=== PATIENT | male | born 1935 | race Caucasian/White ===

== ENCOUNTER 2017-04-11 00:24 | Emergency (ER) | payer OTHER, BC ==
--- NOTE | 2017-04-11 00:40 | PDOC ---
History of Present Illness - General History Source: Patient <Miguel Mendieta - Last Filed: 04/11/17 01:47> - General History Source: Patient, Spouse Exam Limitations: No Limitations - History of Present Illness Initial Comments: 04/11/17 01:16 The patient is a 82 year old male with significant past medical history of MVP and diverticulosis who presents to the ED BIBA from home for pain to the back of the head and back of the neck prior to arrival. Patient reports around yesterday evening he was having dinner and at that time he took all of his evening medications all at once. Subsequently, he began to choke. States some of the medications have dissolved and as a result coughed up some of the medications and noted some coming out from his nose. He now has complaints of pain to the back of the head and back of the neck. gave him some tylenol around 10pm last night with no relief. The patient denies fever, chills, cough, SOB, chest pain, and palpitations. The patient denies abdominal pain, nausea, vomiting, and diarrhea. Allergies: Tetanus Toxoid, Fluid Social History: No alcohol, tobacco, or drug use reported. Past Surgical History: angioplasty with stent placement, cervical fusion c3-c7, right rotator cuff repair, lumbar laminectomy PCP: Dr. Wilfredo Bell <Yu Cruz - Last Filed: 04/11/17 02:00> - General Chief Complaint: Pain, Acute Stated Complaint: HEAD PAIN Time Seen by Provider: 04/11/17 00:37 Past History - Past Medical History Anemia: No Asthma: No Cancer: No Cardiac Disorders: Yes (MITRAL VALVE PROLAPSE,LEFT CAROTID STENOSIS) CVA: No COPD: No CHF: No Dementia: No Diabetes: No GI Disorders: Yes (DIVERTICULOSIS,CONSTIPATION) Disorders: No HTN: No Hypercholesterolemia: No Liver Disease: No Seizures: No Thyroid Disease: No - Surgical History Abdominal Surgery: No Appendectomy: No Cardiac Surgery: Yes (ANGIOPLASTY WITH STENT PLACEMENT) Cholecystectomy: No Lung Surgery: No Neurologic Surgery: Yes (CERVICAL FUSION C3-C7) Orthopedic Surgery: Yes (RIGHT ROTATOR CUFF REPAIR,, LUMBAR LAMINECTOMY, LEFT PART) - Psycho/Social/Smoking Cessation Hx Smoking History: Former smoker If you are a former smoker, when did you quit?: 10 YRS AGO Hx Alcohol Use: No Drug/Substance Use Hx: No Substance Use Type: None Hx Substance Use Treatment: No <AnamClaudetteMiguel - Last Filed: 04/11/17 01:47> <Yu Cruz - Last Filed: 04/11/17 02:00> - Past Medical History Allergies/Adverse Reactions: Allergies Allergy/AdvReac Type Severity Reaction Status Date / Time Tetanus Toxoid,Fluid Allergy Severe Swelling Verified 04/11/17 00:30 [From Tetanus Toxoid Purogenated] Home Medications: Ambulatory Orders Aspirin 81 mg PO DAILY 12/10/11 Pitavastatin Calcium [Livalo] 20 mg PO DAILY 12/10/11 Vitamin D 1,000 iu PO DAILY 12/10/11 Cinnamon Bark [Cinnamon] 1,000 mg PO DAILY 04/11/17 Docusate Sodium [Stool Softener] 50 mg PO DAILY 04/11/17 Furosemide [Lasix] 20 mg PO PRN 04/11/17 Gabapentin 300 mg PO BID 04/11/17 Metoprolol Succinate [Toprol Xl -] 25 mg PO BID 04/11/17 Ranitidine HCl [Zantac] 150 mg PO DAILY 04/11/17 Warfarin Na [Coumadin] 2 mg PO DAILY 04/11/17 Review of Systems - Review of Systems Able to Perform ROS?: Yes Comments:: 04/11/17 01:17 CONSTITUTIONAL: Absent: fever, no chills, no fatigue EYES: Absent: visual changes ENT: Absent: ear pain, no sore throat CARDIOVASCULAR: Absent: chest pain, no palpitations RESPIRATORY: Absent: cough, no SOB GI: Absent: abdominal pain, no nausea, no vomiting, no constipation, no diarrhea GENITOURINARY: Absent: dysuria, no frequency, no hematuria MUSCULOSKELETAL: +pain to the back of the neck Absent: back pain SKIN: Absent: rash NEURO: +pain to the back of the head <Yu Cruz - Last Filed: 04/11/17 02:00> *Physical Exam - Vital Signs Last Vital Signs Temp Pulse Resp BP Pulse Ox 97.1 F L 108 H 20 151/96 98 04/11/17 00:32 04/11/17 00:32 04/11/17 00:32 04/11/17 00:32 04/11/17 00:32 - Physical Exam Comments: 04/11/17 01:17 GENERAL: Well-appearing, well-nourished. Mild distress. HEENT: Normocephalic, atraumatic. PERRL, EOM intact. CARDIOVASCULAR: Normal S1, S2. Regular rate and rhythm. PULMONARY: Clear to auscultation bilaterally. ABDOMEN: Soft, non-distended, non-tender. EXTREMITIES: Normal ROM in all four extremities. No gross deformities. SKIN: Warm, dry. No rash NEUROLOGICAL: No focal neurological deficits. <Yu Cruz - Last Filed: 04/11/17 02:00> Heart Score/ECG Review - ECG Impressions Comment:: 04/11/17 01:59 Atrial fibrillation @100bpm Inferior infarct, age undetermined Abnormal ECG <Yu Crzu - Last Filed: 04/11/17 02:00> ED Treatment Course - LABORATORY CBC & Chemistry Diagram: 04/11/17 01:36 04/11/17 01:36 - RADIOLOGY Radiograph Interpretation: 04/11/17 01:32 EXAM: HEAD CT WITHOUT CONTRAST Reviewed by Imaging push connector assembler: FINDINGS: No evidence of hemorrhage, acute territorial infarction, mass effect, midline shift, hydrocephalus, or extra- axial collections Age appropriate involutional changes Vascular calcifications of the carotid siphons and distal vertebral arteries Status post left mastoidectomy with opacification of the left middle ear cavity Mild bilateral maxillary sinus mucoperiosteal thickening The calvarium is unremarkable. IMPRESSION: 1. No acute intracranial process 04/11/17 01:35 EXAM: CERVICAL SPINE CT W/O CONTR Reviewed by Imaging push connector assembler: FINDINGS: Status post anterior fusion of C3-C7 Intramedullary cage device within C6 and C7 No fractures, subluxations, or jumped facets Normal prevertebral soft tissues Pertinent segmental findings: C2-C3: There is a disc bulge that produces mild narrowing of the central canal. Left uncovertebral hypertrophy that produces mild narrowing of the left neural foramen. The right neural foramen is patent C3-C4: Disc space narrowing. There is posterior bony ridging that produces mild narrowing of the central canal. There is bilateral uncovertebral joint hypertrophy with moderate narrowing of the right neural foramen and moderate to severe narrowing of the left neural foramen C4-C5: Disc space narrowing. There is posterior bony ridging that produces mild narrowing of the central canal. Left uncovertebral hypertrophywith moderate narrowing of the left neural foramen. The right neural foramen is patent C5-C6: Disc space narrowing. There is posterior bony ridging.. The central canal is patent. There is bilateral uncovertebral hypertrophy with moderate to severe narrowing of the left neural foramen and moderate narrowing of the right neural foramen There is facet arthrosis at all levels. Incidental note is made of aneurysmal dilatation of the ascending thoracic aorta with a measurement of 4.2 cm. IMPRESSION: 1. No acute cervical spine injury 2. Postoperative changes 3. Multilevel cervical spondylosis <Yu Cruz - Last Filed: 04/11/17 02:00> Medical Decision Making - Medical Decision Making 04/11/17 01:45 Dr. Mendieta: The scribe's documentation has been prepared under my direction and personally reviewed by me in its entirery. I confirm that the note above accurately reflects all work, treatment, procedures, and medical decision making performed by me. <Miguel Mendieta - Last Filed: 04/11/17 01:47> *DC/Admit/Observation/Transfer - Discharge Dispostion Admit: No <Miguel Mendieta - Last Filed: 04/11/17 01:47> - Attestations Scribe Attestion: 04/11/17 01:17 Documentation prepared by Yu Cruz, acting as medical accountant for Miguel Mendieta MD/DO. <Yu Cruz - Last Filed: 04/11/17 02:00> Diagnosis at time of Disposition: Headache Qualifiers: Headache type: unspecified Headache chronicity pattern: unspecified pattern Intractability: not intractable Qualified Code(s): R51 - Headache Sinusitis Qualifiers: Sinusitis location: maxillary Chronicity: subacute Qualified Code(s): J01.00 - Acute maxillary sinusitis, unspecified - Discharge Dispostion Disposition: HOME Condition at time of disposition: Stable - Referrals Referrals: Wilfredo Bell MD [Primary Care Provider] - - Patient Instructions Printed Discharge Instructions: DI for Headache, DI for Sinusitis Additional Instructions: Please continue the Bactrim DS that you have started for the wound infection. Follow up with your primary care doctor in the next day or two.
[2017-04-11 00:46] VITALS: BP 151/96; TEMP 97.1; BMI 31.8
[2017-04-11 01:49] LABS: BASOPHIL 0.9 % (0-2.0); EOSINOPHIL 1.7 % (0-4.5); MCH 29.6 pg (25.7-33.7); MCHC 32.2 g/dl (32.0-35.9); MEAN CELL VOLUME 91.8 fl (80-96); MEAN PLT VOLUME 7.8 fl (7.5-11.1); NEUTROPHILS 67.5 % (42.8-82.8); PLATELET COUNT 234 K/MM3 (134-434); RDW 16.4 % (11.9-15.9); WHITE BLOOD COUNT 7.9 K/mm3 (4.0-10.0)
[2017-04-11 02:00] VITALS: PULSE 102
[2017-04-11 04:19] LABS: INR 2.34 (0.82-1.09); PROTHROMBIN TIME (PATIENT) 26.2 SEC (9.98-11.88)
[2017-04-11 04:36] LABS: ALBUMIN 3.3 g/dl (3.4-5.0); ALK PHOS 119 U/L (45-117); ANION GAP 11 (8-16); BILIRUBIN,TOTAL 0.6 mg/dL (0.2-1.0); CALCIUM 8.4 mg/dL (8.5-10.1); CO2 26 mmol/L (21-32); COCKROFT - GAULT 109.18; CREATININE 0.8 mg/dL (0.7-1.3); MAGNESIUM 1.8 mg/dL (1.8-2.4); SGOT/AST 22 U/L (15-37); SGPT/ALT 23 U/L (12-78); TOT PROT 6.8 g/dl (6.4-8.2); TROPONIN I < 0.02 ng/ml (0.00-0.05)
[2017-04-11 04:41] LABS: GLUCOSE,RANDOM 137 mg/dL (74-106)
--- NOTE | 2017-04-12 15:38 | EKG ---
Test Reason : Blood Pressure : / mmHG Vent. Rate : 100 BPM Atrial Rate : 375 BPM P-R Int : 000 ms QRS Dur : 090 ms QT Int : 372 ms P-R-T Axes : 000 -23 064 degrees QTc Int : 479 ms ATRIAL FLUTTER INFERIOR INFARCT (CITED ON OR BEFORE 06-JUN-2006) ABNORMAL ECG WHEN COMPARED WITH ECG OF 06-JUN-2006 08:42, ATRIAL FIBRILLATION HAS REPLACED SINUS RHYTHM CLINICAL CORRELATION IS RECOMMENDED Confirmed by SHEKHAR BECKFORD MD ([id number]) on 04/12/2017 3:38:29 PM Referred By: Confirmed By:SHEKHAR BECKFORD MD
== END 2017-04-11 03:06 | disposition home or self-care (01) ==
LOC: JER 00:24
DX: J01.00 Acute maxillary sinusitis, unspecified (principal); R51 Headache; I34.1 Nonrheumatic mitral (valve) prolapse; Z88.8 Allergy status to other drugs, medicaments and biological substances; I65.22 Occlusion and stenosis of left carotid artery; Z95.5 Presence of coronary angioplasty implant and graft; Z79.82 Long term (current) use of aspirin; Z87.891 Personal history of nicotine dependence
CPT/HCPCS: 36415; 70450-TC; 72125-TC; 80053; 82550; 83735; 83880; 84484; 85025; 85610; 93005; 93010; 99283-25

== ENCOUNTER 2018-12-26 01:09 | Inpatient (IN) | payer OTHER ==
[2018-12-26 01:13] VITALS: BMI 32.5
--- NOTE | 2018-12-26 01:28 | PDOC ---
History of Present Illness - History of Present Illness Initial Comments: 83 year old male with PMH of HTN, HLD, and CAD (stent placement on warfarin) presenting with fevers, chills, and left leg pain for the past few hours. States that he had some small red spots on the left lateral aspect of his left ankle which became warm and he then noticed on the medial aspect as well. He began to feel feverish as well and the rash became even more painful and itchy. He does have a chronic wound on his right lower leg that is healing well and is being managed by Dr. Brooks. Denies nausea, vomiting, diarrhea, chest pain, fevers, chills, or other symptoms. 12/26/18 01:36 <Patt Lockwood - Last Filed: 12/26/18 06:11> <Carolin Samuel - Last Filed: 12/26/18 06:51> - General Chief Complaint: SIRS, Suspected/Possible Stated Complaint: FEVER,RASH Time Seen by Provider: 12/26/18 01:28 Past History - Past Medical History Anemia: No Asthma: No Cancer: No Cardiac Disorders: Yes (MITRAL VALVE PROLAPSE,LEFT CAROTID STENOSIS) CVA: No COPD: No CHF: No Dementia: No Diabetes: No GI Disorders: Yes (DIVERTICULOSIS,CONSTIPATION) Disorders: No HTN: No Hypercholesterolemia: No Liver Disease: No Seizures: No Thyroid Disease: No - Surgical History Abdominal Surgery: No Appendectomy: No Cardiac Surgery: Yes (ANGIOPLASTY WITH STENT PLACEMENT) Cholecystectomy: No Lung Surgery: No Neurologic Surgery: Yes (CERVICAL FUSION C3-C7) Orthopedic Surgery: Yes (RIGHT ROTATOR CUFF REPAIR,, LUMBAR LAMINECTOMY, LEFT PART) - Suicide/Smoking/Psychosocial Hx Smoking History: Never smoked Have you smoked in the past 12 months: No If you are a former smoker, when did you quit?: 10 YRS AGO Hx Alcohol Use: No Drug/Substance Use Hx: No Substance Use Type: None Hx Substance Use Treatment: No <Patt Lockwood - Last Filed: 12/26/18 06:11> <Carolin Samuel - Last Filed: 12/26/18 06:51> - Past Medical History Allergies/Adverse Reactions: Allergies Allergy/AdvReac Type Severity Reaction Status Date / Time Tetanus Toxoid,Fluid Allergy Severe Swelling Verified 12/26/18 01:12 [From Tetanus Toxoid Purogenated] Home Medications: Ambulatory Orders Pitavastatin Calcium [Livalo] 20 mg PO DAILY 12/10/11 Vitamin D 1,000 iu PO DAILY 12/10/11 Docusate Sodium [Stool Softener] 50 mg PO DAILY 04/11/17 Furosemide [Lasix] 20 mg PO PRN 04/11/17 Gabapentin 300 mg PO BID 04/11/17 Metoprolol Succinate [Toprol Xl -] 25 mg PO BID 04/11/17 Ranitidine HCl [Zantac] 150 mg PO DAILY 04/11/17 Warfarin Na [Coumadin] 2 mg PO DAILY 04/11/17 Review of Systems - Review of Systems Constitutional: Yes: Fever. No: Chills, Diaphoresis HEENTM: No: Eye Pain, Blurred Vision, Tearing Respiratory: No: Cough, Orthopnea, Shortness of Breath Cardiac (ROS): No: Chest Pain, Edema, Irregular Heart Rate ABD/GI: No: Diarrhea, Nausea, Vomiting : No: Dysuria, Discharge, Hematuria Musculoskeletal: Yes: Joint Pain, Muscle Pain Integumentary: Yes: Erythema, Lesions, Rash. No: Bruising, Flushing Neurological: No: Headache, Numbness, Paresthesia Psychiatric: No: Anxiety, Depression Hematologic/Lymphatic: Yes: Blood Clots, Easy Bleeding. No: Anemia <Patt Lockwood - Last Filed: 12/26/18 06:11> *Physical Exam - Vital Signs Last Vital Signs Temp Pulse Resp BP Pulse Ox 100.0 F H 105 H 18 141/52 L 95 12/26/18 01:12 12/26/18 01:12 12/26/18 01:12 12/26/18 01:12 12/26/18 01:12 - Physical Exam General Appearance: Yes: Nourished, Appropriately Dressed HEENT: positive: EOMI, MILIND, Normal ENT Inspection, Normal Voice Neck: positive: Trachea midline, Normal Thyroid, Supple. negative: Tender, Rigid Respiratory/Chest: positive: Lungs Clear, Normal Breath Sounds. negative: Chest Tender, Respiratory Distress Cardiovascular: positive: Irregularly Irregular. negative: Regular Rhythm, Regular Rate Gastrointestinal/Abdominal: positive: Flat, Soft. negative: Tender Lymphatic: negative: Adenopathy, Tenderness Musculoskeletal: positive: Normal Inspection Extremity: positive: Normal Capillary Refill, Normal Range of Motion, Tender. negative: Normal Inspection (tender left lower leg with erythema over the medial malleolus and lateral malleolus) Integumentary: positive: Warm, Rash. negative: Normal Color (erythema as above without crepitus or sloughing skin on the left leg. Stable right leg circular wound under a clean dry bandage.) Neurologic: positive: Fully Oriented, Alert, Normal Mood/Affect, Normal Response , Motor Strength 5/5 <Patt Lockwood - Last Filed: 12/26/18 06:11> - Vital Signs Last Vital Signs Temp Pulse Resp BP Pulse Ox 97.5 F L 86 20 124/63 95 12/26/18 05:28 12/26/18 05:28 12/26/18 05:28 12/26/18 05:28 12/26/18 05:28 <Carolin Samuel - Last Filed: 12/26/18 06:51> Moderate Sedation - Procedure Monitoring Vital Signs: Procedure Monitoring Vital Signs Temperature 100.0 F H 12/26/18 01:12 Pulse Rate 105 H 12/26/18 01:12 Respiratory Rate 18 12/26/18 01:12 Blood Pressure 141/52 L 12/26/18 01:12 O2 Sat by Pulse Oximetry (%) 95 12/26/18 01:12 <Patt Lockwood - Last Filed: 12/26/18 06:11> - Procedure Monitoring Vital Signs: Procedure Monitoring Vital Signs Temperature 97.5 F L 12/26/18 05:28 Pulse Rate 86 12/26/18 05:28 Respiratory Rate 20 12/26/18 05:28 Blood Pressure 124/63 12/26/18 05:28 O2 Sat by Pulse Oximetry (%) 95 12/26/18 05:28 <Carolin Samuel - Last Filed: 12/26/18 06:51> ED Treatment Course - LABORATORY CBC & Chemistry Diagram: 12/26/18 03:00 12/26/18 03:31 <Patt Lockwood - Last Filed: 12/26/18 06:11> - LABORATORY CBC & Chemistry Diagram: 12/26/18 03:00 12/26/18 03:31 - ADDITIONAL ORDERS Additional order review: Laboratory Results 12/26/18 12/26/18 12/26/18 03:31 03:31 03:00 PT with INR INR PTT (Actin FS) VBG pH POC VBG pCO2 POC VBG pO2 Mixed VBG HCO3 Sodium 136 Potassium 4.4 Chloride 101 Carbon Dioxide 27 Anion Gap 8 BUN 16 Creatinine 0.9 Creat Clearance w eGFR > 60 Random Glucose 157 H Lactic Acid 1.8 1.8 Calcium 8.4 L Total Bilirubin 0.9 AST 28 ALT 19 Alkaline Phosphatase 103 Troponin I Total Protein 6.6 Albumin 3.3 L 12/26/18 12/26/18 12/26/18 03:00 03:00 03:00 PT with INR INR PTT (Actin FS) VBG pH 7.38 POC VBG pCO2 51.6 POC VBG pO2 34.5 Mixed VBG HCO3 30.2 H Sodium Cancelled Potassium Cancelled Chloride Cancelled Carbon Dioxide Cancelled Anion Gap Cancelled BUN Cancelled Creatinine Cancelled Creat Clearance w eGFR Cancelled Random Glucose Cancelled Lactic Acid Calcium Cancelled Total Bilirubin Cancelled AST Cancelled ALT Cancelled Alkaline Phosphatase Cancelled Troponin I < 0.02 Total Protein Cancelled Albumin Cancelled 12/26/18 03:00 PT with INR 32.10 H INR 2.69 H PTT (Actin FS) 39.7 H VBG pH POC VBG pCO2 POC VBG pO2 Mixed VBG HCO3 Sodium Potassium Chloride Carbon Dioxide Anion Gap BUN Creatinine Creat Clearance w eGFR Random Glucose Lactic Acid Calcium Total Bilirubin AST ALT Alkaline Phosphatase Troponin I Total Protein Albumin 12/26/18 03:00 RBC 4.58 MCV 95.0 MCHC 34.8 RDW 14.1 D MPV 8.2 Neutrophils % 81.4 D Lymphocytes % 9.2 D Monocytes % 8.0 Eosinophils % 0.9 Basophils % 0.5 - Medications Given in the ED: ED Medications Discontinued Medications Generic Name Dose Route Start Last Admin Trade Name Freq PRN Reason Stop Dose Admin Piperacillin Sod/Tazobactam 100 mls @ 200 mls/hr 12/26/18 03:12 12/26/18 03: 47 Sod 4.5 gm/ Dextrose IVPB 12/26/18 03:41 200 mls/hr ONCE ONE Administration Protocol Sodium Chloride 1,000 ml 12/26/18 04:33 12/26/18 04:40 Normal Saline - IV 12/26/18 04:34 1,000 ml ONCE ONE Administration <Carolin Samuel - Last Filed: 12/26/18 06:51> Medical Decision Making - Medical Decision Making 83 year old male with fever, slight tachycardia, and left lower extremity skin changes + pain concerning for cellulites. Originally the left foot was noted to be slightly cool to the touch compared the right foot so there was some concern for an arterial thrombus given his history of PAD and afib. This was ruled out with the arterial Doppler. Patient originally presented for concern of sepsis but never had a measured fever here and VS cleared with 1 L NS. Given cardiac history, IV fluids were given cautiously. Patient was never toxic appearing. Labs roughly within normal limits (mild leukocytosis, WNL lactate, normal VBG) but patient admitted for broad spectrum IV antibiosis and further evaluation. 12/26/18 04:55 <Patt Lockwood - Last Filed: 12/26/18 06:11> *DC/Admit/Observation/Transfer - Discharge Dispostion Decision to Admit order: Yes <Patt Lockwood - Last Filed: 12/26/18 06:11> <Carolin Samuel - Last Filed: 12/26/18 06:51> Diagnosis at time of Disposition: Cellulitis Qualifiers: Site of cellulitis: extremity Site of cellulitis of extremity: lower extremity Laterality: left Qualified Code(s): L03.116 - Cellulitis of left lower limb - Discharge Dispostion Condition at time of disposition: Stable
--- NOTE | 2018-12-26 03:08 | PDOC ---
Attending Attestation - Resident Resident Name: Patt Lockwood - ED Attending Attestation I have performed the following: I have examined & evaluated the patient, The case was reviewed & discussed with the resident, I agree w/resident's findings & plan - HPI HPI: 12/26/18 06:50 83 year old male with PMH of HTN, HLD, and CAD (stent placement on warfarin) presenting with fevers, chills, and left leg pain for the past few hours. States that he had some small red spots on the left lateral aspect of his left ankle which became warm and he then noticed on the medial aspect as well. It is cellulitis. - Physicial Exam PE: 12/26/18 06:51 Agree with resident's note - Medical Decision Making 12/26/18 03:07 Patient Name: SHERRY VILLAFUERTE THIS IS A PRELIMINARY REPORT FROM [facility] DATE OF SERVICE: 2018-12-26 02:04:48 IMAGES: 22 EXAM: DUPLEX ART. LEGS- LIMITED US HISTORY: Leg pain COMPARISON: None. FINDINGS: Arterial duplex sonography of the left lower extremity was performed from the common femoral through the posterior tibial arteries. There is no elevation of the velocity. Triphasic waveforms are seen in the superficial femoral and popliteal arteries. Biphasic waveform is seen in the common femoral artery. No significant arterial velocity elevation is seen. The velocity in the common femoral artery 79 cm/s and the posterior tibial arteries 22 cm/s. Mild plaquing is noted. IMPRESSION: Mild plaquing is noted in the left lower extremity arterial tree but no significant stenoses are identified at this time. THIS DOCUMENT HAS BEEN ELECTRONICALLY SIGNED 12/26/18 03:18 Patient Name: SHERRY VILLAFUERTE THIS IS A PRELIMINARY REPORT FROM [facility] DATE OF SERVICE: 2018-12-26 01:57:57 IMAGES: 22 EXAM: Ultrasound venous duplex bilateral lower extremity HISTORY: Right leg pain COMPARISON: None. FINDINGS: Left lower extremity venous ultrasound shows intact common femoral, superficial femoral and popliteal veins. Normal augmentation and compression is evident in these venous segments. No intraluminal thrombus seen. IMPRESSION: NO EVIDENCE FOR DVT. 12/26/18 06:52 Pt will be treated with abx and he will be admitted for further workup.
[2018-12-26] MEDS ORDERED: PIPERACILLIN/TAZOB 4.5 GM 4.5 GM in DEXTROSE 5%-WATER 100 ML IVPB ONE (03:12)
[2018-12-26 03:14] LABS: BASO % 0.5 % (0-2.0); EOS % 0.9 % (0-4.5); HEMATOCRIT 43.5 % (35.4-49); HEMOGLOBIN 15.2 GM/dL (11.7-16.9); LYMPH % 9.2 % (8-40); MCH 33.1 pg (25.7-33.7); MCHC 34.8 g/dl (32.0-35.9); MEAN PLT VOLUME 8.2 fl (7.5-11.1); NEUT % 81.4 % (42.8-82.8); PLATELET COUNT 217 K/MM3 (134-434); RBC 4.58 M/mm3 (4.00-5.60); RDW 14.1 % (11.9-15.9); VENOUS PC02 51.6 mmHg (38-52); VENOUS PH 7.38 (7.32-7.42); VENOUS PO2 34.5 mmHg (28-48); WHITE BLOOD COUNT 13.8 K/mm3 (4.0-10.0)
[2018-12-26] MEDS ORDERED: PIPERACILLIN/TAZOB 4.5 GM 4.5 GM/100 ML BAG IVPB ONE (03:28)
[2018-12-26 03:43] LABS: INR 2.69 (0.83-1.09); PROTHROMBIN TIME (PATIENT) 32.1 SEC (9.7-13.0)
[2018-12-26 03:51] LABS: ACTIVATED PTT 39.7 SECONDS (25.2-36.5)
[2018-12-26] MEDS ORDERED: SODIUM CHLORIDE 0.9% 500 ML INFUS.BAG IV ONE (04:33)
[2018-12-26 06:09] LABS: ALBUMIN 3.3 g/dl (3.4-5.0); ALK PHOS 103 U/L (45-117); ANION GAP 8 MMOL/L (8-16); BILIRUBIN,TOTAL 0.9 mg/dL (0.2-1); BLOOD UREA NITROGEN 16 mg/dL (7-18); CALCIUM 8.4 mg/dL (8.5-10.1); CHLORIDE 101 mmol/L (98-107); CO2 27 mmol/L (21-32); CREATININE 0.9 mg/dL (0.55-1.3); GLUCOSE,RANDOM 157 mg/dL (74-106); POTASSIUM 4.4 mmol/L (3.5-5.1); SGOT/AST 28 U/L (15-37); SGPT/ALT 19 U/L (13-61); SODIUM 136 mmol/L (136-145); TOT PROT 6.6 g/dl (6.4-8.2)
[2018-12-26] MEDS ORDERED: PITAVASTATIN CALCIUM PO SCH (10:00)
[2018-12-26] MEDS ORDERED: DOCUSATE SODIUM 50 MG PO SCH (10:00)
[2018-12-26] MEDS ORDERED: RANITIDINE HCL 150 MG TABLET (FP) PO SCH (10:00)
--- NOTE | 2018-12-26 10:56 | HP ---
CHIEF COMPLAINT: left leg pain with swelling and redness PCP: Dr. Bell, PCP Recreation Manager: Anjel White MD emergency contact: : [phone] cell HISTORY OF PRESENT ILLNESS: Patient is an 83 year old male with a significant past medical history of hypertension, hyperlipidemia, CAD, CVA with right sided weakness, left carotid artery repair and an extensive surgical history as noted below. He presents to the ED with pain in the lower left leg with swelling and redness for the past two days. he notices small red spots on the left lateral aspect of this ankle. He had fever and chills at home and comes into the hospital after he noticed that the leg rash became more painful. He is followed by a vascular physician for a chronic right lower leg ulcer. Denies nausea, vomiting, diarrhea, chest pain, fevers, chills, or other symptoms. ER course was notable for: (1) ceftriaxone, vancomycin (2) tinea pedis left foot (3) negative for dvt of left lower ext. Recent Travel: none PAST SURGICAL HISTORY: 1995 left knee arthorscopyic 1997 Right shoulder rotator cuff repair 2000 Left Mastoidectomy 2006 laminectomy of lumbar spine 2007 left carotid artery repair 2008 stent 2009 left partial knee replacement 2008 cervical fusion c3-c7 2011 posterior cervical fusion [id number] 2011 insertion of right femoral harsha filter 2011 irrigation and debridement of spinal fusion 2012 bilteral latissimus muscle flap 2012 reconstruction of complex open back wound, incisional vac placement 2014 TPA for MCA stroke 2017 reversed shoulder replacement Social History: Smoking: n/a Alcohol: n/a Drugs: n/a Family History: Allergies Tetanus Toxoid,Fluid [From Tetanus Toxoid Purogenated] Allergy (Severe, Verified 12/26/18 01:12) Swelling PER PATIENT HOME MEDICATIONS: Home Medications Medication Instructions Recorded Pitavastatin Calcium [Livalo] 20 mg PO DAILY 12/10/11 Vitamin D 1,000 iu PO DAILY 12/10/11 Docusate Sodium [Stool Softener] 50 mg PO DAILY 04/11/17 Furosemide [Lasix] 20 mg PO PRN 04/11/17 Gabapentin 300 mg PO BID 04/11/17 Metoprolol Succinate [Toprol Xl -] 25 mg PO BID 04/11/17 Ranitidine HCl [Zantac] 150 mg PO DAILY 04/11/17 Warfarin Na [Coumadin] 2 mg PO DAILY 04/11/17 REVIEW OF SYSTEMS CONSTITUTIONAL: Absent: rhinorrhea, nasal congestion, throat pain, throat swelling, difficulty swallowing, mouth swelling, ear pain, eye pain, visual changes CARDIOVASCULAR: Absent: chest pain, syncope, palpitations, irregular heart rate, lightheadedness , peripheral edema RESPIRATORY: Absent: cough, shortness of breath, dyspnea with exertion, orthopnea, wheezing, stridor, hemoptysis GASTROINTESTINAL: Absent: abdominal pain, abdominal distension, nausea, vomiting, diarrhea, constipation, melena, hematochezia GENITOURINARY: Absent: dysuria, frequency, urgency, hesitancy, hematuria, flank pain, genital pain MUSCULOSKELETAL: Absent: myalgia, arthralgia, joint swelling, back pain, neck pain SKIN: Absent: rash, itching, pallor HEMATOLOGIC/IMMUNOLOGIC: Absent: easy bleeding, easy bruising, lymphadenopathy, frequent infections ENDOCRINE: Absent: unexplained weight gain, unexplained weight loss, heat intolerance, cold intolerance NEUROLOGIC: Absent: headache, focal weakness or paresthesias, dizziness, unsteady gait, seizure, mental status changes, bladder or bowel incontinence PSYCHIATRIC: Absent: anxiety, depression, suicidal or homicidal ideation, hallucinations. PHYSICAL EXAMINATION Vital Signs - 24 hr 12/26/18 12/26/18 12/26/18 01:12 05:28 08:00 Temperature 100.0 F H 97.5 F L 98.4 F Pulse Rate 105 H Pulse Rate [ 86 66 Right Radial] Respiratory 18 20 18 Rate Blood Pressure 141/52 L Blood Pressure 124/63 128/78 [Right Arm] O2 Sat by Pulse 95 95 98 Oximetry (%) GENERAL: Awake, alert, and fully oriented, in no acute distress. HEAD: Normal with no signs of trauma. EYES: Pupils equal, round and reactive to light, extraocular movements intact, sclera anicteric, conjunctiva clear. No lid lag. EARS, NOSE, THROAT: Ears normal, nares patent, oropharynx clear without exudates. Moist mucous membranes. NECK: Normal range of motion, supple without lymphadenopathy, JVD, or masses. LUNGS: Breath sounds equal, diminished to auscultation bilaterally HEART: irregular ABDOMEN: Soft, nontender, not distended, normoactive bowel sounds, no guarding, no rebound, no masses. No hepatomegaly or splenomegaly. MUSCULOSKELETAL: Normal range of motion at all joints. No bony deformities or tenderness. No CVA tenderness. UPPER EXTREMITIES: right sided weakness. LOWER EXTREMITIES: small red spots on the left lateral aspect of his left ankle which became warm, right anterior leg with small ulceration NEUROLOGICAL: Normal speech. ambulates with RW PSYCHIATRIC: Cooperative. Good eye contact. Appropriate mood and affect. Laboratory Results - last 24 hr 12/26/18 12/26/18 12/26/18 03:00 03:00 03:00 WBC 13.8 H RBC 4.58 Hgb 15.2 Hct 43.5 D MCV 95.0 MCH 33.1 D MCHC 34.8 RDW 14.1 D Plt Count 217 MPV 8.2 Absolute Neuts (auto) 11.3 H Neutrophils % 81.4 D Lymphocytes % 9.2 D Monocytes % 8.0 Eosinophils % 0.9 Basophils % 0.5 Nucleated RBC % 0 ESR PT with INR 32.10 H INR 2.69 H PTT (Actin FS) 39.7 H VBG pH 7.38 POC VBG pCO2 51.6 POC VBG pO2 34.5 Mixed VBG HCO3 30.2 H Sodium Potassium Chloride Carbon Dioxide Anion Gap BUN Creatinine Creat Clearance w eGFR Random Glucose Lactic Acid Calcium Total Bilirubin AST ALT Alkaline Phosphatase Troponin I C-Reactive Protein Total Protein Albumin 12/26/18 12/26/18 12/26/18 03:00 03:00 03:00 WBC RBC Hgb Hct MCV MCH MCHC RDW Plt Count MPV Absolute Neuts (auto) Neutrophils % Lymphocytes % Monocytes % Eosinophils % Basophils % Nucleated RBC % ESR PT with INR INR PTT (Actin FS) VBG pH POC VBG pCO2 POC VBG pO2 Mixed VBG HCO3 Sodium Cancelled Potassium Cancelled Chloride Cancelled Carbon Dioxide Cancelled Anion Gap Cancelled BUN Cancelled Creatinine Cancelled Creat Clearance w eGFR Cancelled Random Glucose Cancelled Lactic Acid 1.8 Calcium Cancelled Total Bilirubin Cancelled AST Cancelled ALT Cancelled Alkaline Phosphatase Cancelled Troponin I < 0.02 C-Reactive Protein Total Protein Cancelled Albumin Cancelled 12/26/18 12/26/18 12/26/18 03:00 03:31 03:31 WBC RBC Hgb Hct MCV MCH MCHC RDW Plt Count MPV Absolute Neuts (auto) Neutrophils % Lymphocytes % Monocytes % Eosinophils % Basophils % Nucleated RBC % ESR 23 H PT with INR INR PTT (Actin FS) VBG pH POC VBG pCO2 POC VBG pO2 Mixed VBG HCO3 Sodium 136 Potassium 4.4 Chloride 101 Carbon Dioxide 27 Anion Gap 8 BUN 16 Creatinine 0.9 Creat Clearance w eGFR > 60 Random Glucose 157 H Lactic Acid 1.8 Calcium 8.4 L Total Bilirubin 0.9 AST 28 ALT 19 Alkaline Phosphatase 103 Troponin I C-Reactive Protein 1.7 H Total Protein 6.6 Albumin 3.3 L ASSESSMENT/PLAN: Patient is an 83 year old male with a significant past medical history of hypertension, hyperlipidemia, CAD, CVA with right sided weakness, left carotid artery repair and an extensive surgical history as noted below. He presents to the ED with pain in the lower left leg with swelling and redness for the past two days. he notices small red spots on the left lateral aspect of this ankle. He had fever and chills at home and comes into the hospital after he noticed that the leg rash became more painful. ---- left lower ext cellulitis right anterior velázquez with ulceration hypertension hyperlipidemia hx of CVA CAD atrial fibrillation ------ ID: left lower ext cellulitis blood cultures pending. Given Zosyn in the ED. Started on Vancomycin and Certriaxone per ID. Right lower ext ulceration: Will consult vascular surgery Card: Hypertension. controlled on metoprolol 25mg bid Hyperlipidemia. takes pravastatin twice weekly. next dose due on Friday. CAD. on pravastatin. ASA Atrial fibrillation. controlled. on warfarin 2mg daily. INR @ 2.3 goal inr is between 2-3 Neuro: hx of CVA Right sided weakness. physical therapy ordered. Uses RW to get around at home. Fall precautions fen tolerating po monitor electrolytes low salt diet prophy on coumadin Zantac bid physical therapy full code Visit type - Emergency Visit Emergency Visit: Yes ED Registration Date: 12/26/18 Care time: The patient presented to the Emergency Department on the above date and was hospitalized for further evaluation of their emergent condition. - New Patient This patient is new to me today: Yes Date on this admission: 12/26/18 - Critical Care Critical Care patient: No
[2018-12-26] MEDS: CHOLECALCIFEROL (VITAMIN D3) 1,000 UNIT TABLET (FP) PO SCH (11:42)
[2018-12-26] MEDS: ASPIRIN COATED 81 MG TABLET.EC PO SCH (11:43)
[2018-12-26] MEDS: GABAPENTIN 300 MG CAPSULE (FP) PO SCH ×2 (11:43→21:32)
[2018-12-26] MEDS: LACTOBACILLUS ACIDOPHILUS 1 TABLET PO SCH (11:43)
[2018-12-26] MEDS: DOCUSATE SODIUM 100 MG CAPSULE (FP) PO SCH ×2 (11:43→21:32)
[2018-12-26] MEDS: POLYETHYLENE GLYCOL 3350 119 GM BTL PO SCH (11:43)
[2018-12-26] MEDS: FUROSEMIDE 20 MG TABLET (FP) PO SCH (11:43)
[2018-12-26] MEDS: metoPROLOL SUCCINATE 25 MG TAB.SR.24H (FP) PO SCH ×2 (11:43→21:32)
[2018-12-26] MEDS ORDERED: FLU VACCINE QUAD 60 MCG/0.5 ML (MDV 18-19) IM ONE (12:10)
--- NOTE | 2018-12-26 13:34 | PN ---
Progress Note (short form) - Note Progress Note: ID consult dictated LE CELLULITIS FEVER/ CHILLS R/O SEPSIS AWAIT C/S EMPIRIC CEFTRIAXONE/ VANCOMYCIN
[2018-12-26] MEDS ORDERED: DEXTROSE 5%-WATER 100 ML IVPB ONE (14:09)
[2018-12-26] MEDS: CEFTRIAXONE 2 GM in DEXTROSE 5%-WATER 100 ML IVPB SCH (14:20)
[2018-12-26] MEDS: VANCOMYCIN 1 GRAM (PRE-DOCKED) 1,000 MG/250 ML BAG IVPB SCH (14:20)
[2018-12-26] MEDS: WARFARIN NA 2 MG TABLET (UD) PO SCH (18:31)
[2018-12-26] MEDS: RANITIDINE HCL 150 MG TABLET (FP) PO SCH (21:32)
--- NOTE | 2018-12-26 22:02 | EKG ---
Test Reason : Blood Pressure : / mmHG Vent. Rate : 104 BPM Atrial Rate : 098 BPM P-R Int : 000 ms QRS Dur : 088 ms QT Int : 312 ms P-R-T Axes : 000 -28 081 degrees QTc Int : 410 ms ATRIAL FIBRILLATION WITH RAPID VENTRICULAR RESPONSE ABNORMAL ECG WHEN COMPARED WITH ECG OF 11-APR-2017 01:50, NO SIGNIFICANT CHANGE WAS FOUND Confirmed by TABATHA BRIDGES MD ([id number]) on 12/26/2018 10:01:49 PM Referred By: Confirmed By:TABATHA BRIDGES MD
[2018-12-27] MEDS: VANCOMYCIN 1 GRAM (PRE-DOCKED) 1,000 MG/250 ML BAG IVPB SCH ×2 (01:13→14:44)
[2018-12-27] MEDS ORDERED: DEXTROSE 5%-WATER 100 ML IVPB ONE (08:49)
[2018-12-27] MEDS: RANITIDINE HCL 150 MG TABLET (FP) PO SCH ×2 (09:36→22:37)
[2018-12-27] MEDS: GABAPENTIN 300 MG CAPSULE (FP) PO SCH ×2 (09:36→22:37)
[2018-12-27] MEDS: FUROSEMIDE 20 MG TABLET (FP) PO SCH (09:36)
[2018-12-27] MEDS: metoPROLOL SUCCINATE 25 MG TAB.SR.24H (FP) PO SCH ×2 (09:36→22:38)
[2018-12-27] MEDS: DOCUSATE SODIUM 100 MG CAPSULE (FP) PO SCH ×2 (09:36→22:38)
[2018-12-27] MEDS: CHOLECALCIFEROL (VITAMIN D3) 1,000 UNIT TABLET (FP) PO SCH (09:36)
[2018-12-27] MEDS: LACTOBACILLUS ACIDOPHILUS 1 TABLET PO SCH (09:36)
[2018-12-27] MEDS: ASPIRIN COATED 81 MG TABLET.EC PO SCH (09:36)
[2018-12-27] MEDS: POLYETHYLENE GLYCOL 3350 119 GM BTL PO SCH (09:37)
[2018-12-27] MEDS: CEFTRIAXONE 2 GM in DEXTROSE 5%-WATER 100 ML IVPB SCH (09:37)
[2018-12-27 10:31] LABS: HEMATOCRIT 41.6 % (35.4-49); HEMOGLOBIN 14.3 GM/dL (11.7-16.9); MCH 32.3 pg (25.7-33.7); MCHC 34.3 g/dl (32.0-35.9); MEAN CELL VOLUME 94.1 fl (80-96); MEAN PLT VOLUME 7.8 fl (7.5-11.1); PLATELET COUNT 183 K/MM3 (134-434); RBC 4.42 M/mm3 (4.00-5.60); RDW 14.5 % (11.9-15.9)
[2018-12-27 10:42] LABS: INR 2.46 (0.83-1.09); PROTHROMBIN TIME (PATIENT) 29.3 SEC (9.7-13.0)
[2018-12-27 11:03] LABS: ANION GAP 6 MMOL/L (8-16); BLOOD UREA NITROGEN 13 mg/dL (7-18); CALCIUM 8.5 mg/dL (8.5-10.1); CHLORIDE 102 mmol/L (98-107); CO2 28 mmol/L (21-32); GLUCOSE,RANDOM 167 mg/dL (74-106); MAGNESIUM 2.1 mg/dL (1.8-2.4); POTASSIUM 4.2 mmol/L (3.5-5.1); SODIUM 135 mmol/L (136-145)
--- NOTE | 2018-12-27 12:16 | CONS ---
DATE OF CONSULTATION: 12/26/2018 The patient is an 83-year-old male who is evaluated for cellulitis of the lower extremities. The patient was admitted to the hospital on December 26, 2018, with bilateral lower extremity cellulitis. He reports developing abrupt onset of left leg pain on the evening prior to admission. The patient's states that he suddenly developed onset of erythema of the left lower extremity associated with chills. He was taken to the emergency room, where was assessed for cellulitis of his left lower extremity and was admitted. He denies any traumatic injury to his legs. No inspects or animal bites or scratches. He denies prior history of serious soft tissue infection or history of MRSA. PAST MEDICAL HISTORY: Positive for hypertension, hyperlipidemia, coronary artery disease, diverticulosis, atrial fibrillation. PAST SURGICAL HISTORY: Status post coronary artery stent, history of back surgery complicated by surgical wound infection. Allergies to TETANUS TOXOID. MEDICATIONS: Vitamin D, Colace, Lasix, Neurontin, Toprol, Zantac, Coumadin. SOCIAL HISTORY: Lives at home with his significant other. No active tobacco or alcohol use. SYSTEMS REVIEW: Neurologic: No loss of consciousness, seizure activity, focal weakness. Cardiac: Negative chest pain or palpitations. Respiratory: Negative cough or sputum production. Gastrointestinal: Negative vomiting or diarrhea. Genitourinary: Negative for urinary tract infection. LABORATORY DATA: White cells 13.8, hematocrit 43.5, platelet count 217, BUN 16, creatinine 0.9, ESR 23. Cultures are pending. PHYSICAL EXAMINATION: General: He is awake and alert, in no acute distress. Vital Signs: T-max 100, blood pressure 121/65, pulse 84 and regular, respirations 20 per minute. Eyes: Sclerae anicteric. Heart Sounds: Irregular, S1, S2. Lungs: Clear. Abdomen: Soft, nontender. Lower Extremities: Erythema present on the medial and lateral malleoli with swelling and mild erythema. There also appears to be lymphangitis with erythema extending to the left medial thigh. Right lower extremity, there is a dry abrasion present over the right pretibial area with surrounding erythema and warmth. Positive tinea pedis. IMPRESSION: 1. Lower extremity cellulitis. 2. Fever, chills. Rule out sepsis secondary to skin source. Await cultures. Empiric antibiotic coverage with ceftriaxone and vancomycin. Discussed with the patient's present at the time of the examination. Thank you for the kind referral. VITO BERNABE M.D. [place]/[id number]
--- NOTE | 2018-12-27 12:47 | PN ---
Physical Exam: SUBJECTIVE: Patient seen and examined at the bedside. in no acute distress. feels well, sitting in chair. leg is getting better he feels. at bedside. discussed POC with her. she is asking for a new podiatry consult. will consult Dr. Sloan. OBJECTIVE: symphony coverage for Dr. Bell elevated fasting bgms, hmga1c. in a.m. podiatry and vascular consulted Vital Signs Period Temp Pulse Resp BP Sys/Velazquez Pulse Ox Last 24 Hr 97.6 F-98.6 F 71-89 18-20 114-148/50-89 95 GENERAL: Awake, alert, and fully oriented, in no acute distress. HEAD: Normal with no signs of trauma. EYES: Pupils equal, round and reactive to light, extraocular movements intact, sclera anicteric, conjunctiva clear. No lid lag. EARS, NOSE, THROAT: Ears normal, nares patent, oropharynx clear without exudates. Moist mucous membranes. NECK: Normal range of motion, supple without lymphadenopathy, JVD, or masses. LUNGS: Breath sounds equal, diminished to auscultation bilaterally HEART: irregular ABDOMEN: Soft, nontender, not distended, normoactive bowel sounds, no guarding, no rebound, no masses. No hepatomegaly or splenomegaly. MUSCULOSKELETAL: Normal range of motion at all joints. No bony deformities or tenderness. No CVA tenderness. UPPER EXTREMITIES: right sided weakness. LOWER EXTREMITIES: small red spots on the left lateral aspect of his left ankle which became warm, right anterior leg with small ulceration NEUROLOGICAL: Normal speech. ambulates with RW PSYCHIATRIC: Cooperative. Good eye contact. Appropriate mood and affect. Laboratory Results - last 24 hr Laboratory Results - last 24 hr 12/27/18 12/27/18 12/27/18 10:20 10:20 10:20 WBC 7.0 RBC 4.42 Hgb 14.3 Hct 41.6 MCV 94.1 MCH 32.3 MCHC 34.3 RDW 14.5 Plt Count 183 MPV 7.8 PT with INR 29.30 H INR 2.46 H Sodium 135 L Potassium 4.2 Chloride 102 Carbon Dioxide 28 Anion Gap 6 L BUN 13 Creatinine 1.0 Creat Clearance w eGFR > 60 Random Glucose 167 H Calcium 8.5 Magnesium 2.1 Active Medications Generic Name Dose Route Start Last Admin Trade Name Freq PRN Reason Stop Dose Admin Aspirin 81 mg 12/26/18 11:15 12/27/18 09:36 Ecotrin - PO 81 mg DAILY GEORGETTE Administration Cholecalciferol 1,000 unit 12/26/18 11:15 12/27/18 09:36 Vitamin D3 - PO 1,000 unit DAILY GEORGETTE Administration Docusate Sodium 100 mg 12/26/18 11:15 12/27/18 09:36 Colace - PO 100 mg BID GEORGETTE Administration Furosemide 20 mg 12/26/18 11:30 12/27/18 09:36 Lasix - PO 20 mg DAILY GEORGETTE Administration Gabapentin 300 mg 12/26/18 10:00 12/27/18 09:36 Neurontin - PO 300 mg BID GEORGETTE Administration Ceftriaxone Sodium 2 gm/ 100 mls @ 100 mls/hr 12/26/18 13:45 12/27/18 09:37 Dextrose IVPB 100 mls/hr DAILY GEORGETTE Administration Protocol Vancomycin HCl 1,000 mg in 250 mls @ 166.667 mls/hr 12/26/18 13:45 12/27/18 01:13 Vancomycin (Pre-Docked) IVPB 166.667 mls/hr Q12H GEORGETTE Administration Protocol Lactobacillus Acidophilus 1 tab 12/26/18 11:15 12/27/18 09:36 Bacid - PO 1 tab DAILY GEORGETTE Administration Metoprolol Succinate 25 mg 12/26/18 10:00 12/27/18 09:36 Toprol Xl - PO 25 mg BID GEORGETTE Administration Polyethylene Glycol 17 gm 12/26/18 11:30 12/27/18 09:37 Miralax (For Daily Use) - PO 17 gm DAILY GEORGETTE Administration Ranitidine HCl 150 mg 12/26/18 11:15 12/27/18 09:36 Zantac - PO 150 mg BID GEORGETTE Administration Warfarin Sodium 2 mg 12/26/18 18:00 12/26/18 18:31 Coumadin - PO 2 mg DAILY@1800 GEORGETTE Administration ASSESSMENT/PLAN: Patient is an 83 year old male with a significant past medical history of hypertension, hyperlipidemia, CAD, CVA with right sided weakness, left carotid artery repair and an extensive surgical history as noted below. He presents to the ED with pain in the lower left leg with swelling and redness for the past two days. he notices small red spots on the left lateral aspect of this ankle. He had fever and chills at home and comes into the hospital after he noticed that the leg rash became more painful. ---- left lower ext cellulitis right anterior velázquez with ulceration hypertension hyperlipidemia hx of CVA CAD atrial fibrillation ------ ID: left lower ext cellulitis blood cultures pending. Given Zosyn in the ED. Started on Vancomycin and Certriaxone per ID. Right lower ext ulceration: Will consult vascular surgery. Card: Hypertension. controlled on metoprolol 25mg bid Hyperlipidemia. takes pravastatin twice weekly. next dose due on Friday. CAD. on pravastatin. ASA Atrial fibrillation. controlled. on warfarin 2mg daily. INR @ 2.4 goal inr is between 2-3. continue coumadin at current dose. Neuro: hx of CVA Right sided weakness. physical therapy ordered. Uses RW to get around at home. Fall precautions fen tolerating po monitor electrolytes low salt diet prophy on coumadin Zantac bid physical therapy full code Visit type - Emergency Visit Emergency Visit: Yes ED Registration Date: 12/26/18 Care time: The patient presented to the Emergency Department on the above date and was hospitalized for further evaluation of their emergent condition. - New Patient This patient is new to me today: No - Critical Care Critical Care patient: No - Discharge Referral Referred to [facility] Med [facility].C[facility] No
--- NOTE | 2018-12-27 17:09 | PN ---
Progress Note, Physician History of Present Illness: OOB IN CHAIR NO C/O LEG PAIN NO F/C AFEBRILE WBC IMPROVED WNL BC NO GROWTH - Current Medication List Current Medications: Active Medications Aspirin (Ecotrin -) 81 mg PO DAILY [facility] Last Admin: 12/27/18 09:36 Dose: 81 mg Cholecalciferol (Vitamin D3 -) 1,000 unit PO DAILY [facility] Last Admin: 12/27/18 09:36 Dose: 1,000 unit Docusate Sodium (Colace -) 100 mg PO BID [facility] Last Admin: 12/27/18 09:36 Dose: 100 mg Furosemide (Lasix -) 20 mg PO DAILY [facility] Last Admin: 12/27/18 09:36 Dose: 20 mg Gabapentin (Neurontin -) 300 mg PO BID [facility] Last Admin: 12/27/18 09:36 Dose: 300 mg Ceftriaxone Sodium 2 gm/ (Dextrose) 100 mls @ 100 mls/hr IVPB DAILY [facility]; Protocol Last Admin: 12/27/18 09:37 Dose: 100 mls/hr Vancomycin HCl (Vancomycin (Pre-Docked)) 1,000 mg in 250 mls @ 166.667 mls/hr IVPB Q12H [facility]; Protocol Last Admin: 12/27/18 14:44 Dose: 166.667 mls/hr Lactobacillus Acidophilus (Bacid -) 1 tab PO DAILY [facility] Last Admin: 12/27/18 09:36 Dose: 1 tab Metoprolol Succinate (Toprol Xl -) 25 mg PO BID [facility] Last Admin: 12/27/18 09:36 Dose: 25 mg Nystatin (Mycostatin Ointment -) 1 applic TP BID [facility] Polyethylene Glycol (Miralax (For Daily Use) -) 17 gm PO DAILY [facility] Last Admin: 12/27/18 09:37 Dose: 17 gm Ranitidine HCl (Zantac -) 150 mg PO BID [facility] Last Admin: 12/27/18 09:36 Dose: 150 mg Warfarin Sodium (Coumadin -) 2 mg PO DAILY@1800 [facility] Last Admin: 12/26/18 18:31 Dose: 2 mg - Objective Vital Signs: Vital Signs Temperature 97.5 F L 12/27/18 14:14 Pulse Rate 87 12/27/18 14:14 Respiratory Rate 18 12/27/18 14:14 Blood Pressure 125/68 12/27/18 14:14 O2 Sat by Pulse Oximetry (%) 95 12/27/18 09:00 Constitutional: Yes: No Distress, Obese Cardiovascular: Yes: Regular Rate and Rhythm, S1, S2 Respiratory: Yes: CTA Bilaterally Gastrointestinal: Yes: Normal Bowel Sounds, Soft, Abdomen, Obese. No: Tenderness Extremities: Yes: Other (DECREASED ERYTHEMA/ WARMTH LE BILATERALLY DRY ULCER R PRETIBIAL AREA + TINEA PEDIS) Edema: Yes Labs: CBC, BMP 12/27/18 10:20 12/27/18 10:20 INR, PTT INR 2.46 (0.83-1.09) H 12/27/18 10:20 Assessment/Plan LE CELLULITIS IMPROVED TINEA PEDIS FEVER/ CHILLS RESOLVED LEUKOCYTOSIS RESOLVED CONTINUE CEFTRIAXONE/ VANCOMYCIN
[2018-12-27] MEDS ORDERED: PT OWN MED DRAWER 7, Y5N ONE (17:19)
[2018-12-27] MEDS: WARFARIN NA 2 MG TABLET (UD) PO SCH (17:20)
[2018-12-27] MEDS: NYSTATIN 100000 UNIT/GM TOPICAL OINTMENT 15 GM TUBE TP SCH ×2 (17:20→22:38)
[2018-12-27] MEDS ORDERED: ACETAMINOPHEN 325 MG TABLET (FP) PO PRN (21:19)
[2018-12-28] MEDS: VANCOMYCIN 1 GRAM (PRE-DOCKED) 1,000 MG/250 ML BAG IVPB SCH ×2 (00:59→14:43)
[2018-12-28 07:20] LABS: BASO % 0.7 % (0-2.0); EOS % 3.2 % (0-4.5); HEMATOCRIT 39.4 % (35.4-49); HEMOGLOBIN 13.7 GM/dL (11.7-16.9); LYMPH % 23.7 % (8-40); MCH 32.5 pg (25.7-33.7); MCHC 34.8 g/dl (32.0-35.9); MEAN CELL VOLUME 93.4 fl (80-96); MEAN PLT VOLUME 8.1 fl (7.5-11.1); MONO % 8.9 % (3.8-10.2); NEUT % 63.5 % (42.8-82.8); PLATELET COUNT 188 K/MM3 (134-434); RBC 4.22 M/mm3 (4.00-5.60); RDW 14.4 % (11.9-15.9); WHITE BLOOD COUNT 6.6 K/mm3 (4.0-10.0)
[2018-12-28 07:32] LABS: ALBUMIN 2.9 g/dl (3.4-5.0); ALK PHOS 97 U/L (45-117); ANION GAP 7 MMOL/L (8-16); BILIRUBIN,TOTAL 0.8 mg/dL (0.2-1); BLOOD UREA NITROGEN 16 mg/dL (7-18); CALCIUM 8.3 mg/dL (8.5-10.1); CHLORIDE 102 mmol/L (98-107); CO2 27 mmol/L (21-32); CREATININE 0.9 mg/dL (0.55-1.3); GLUCOSE,RANDOM 116 mg/dL (74-106); SGOT/AST 16 U/L (15-37); SGPT/ALT 17 U/L (13-61); SODIUM 136 mmol/L (136-145); TOT PROT 6.2 g/dl (6.4-8.2)
[2018-12-28 07:45] LABS: INR 2.42 (0.83-1.09); PROTHROMBIN TIME (PATIENT) 28.8 SEC (9.7-13.0)
--- NOTE | 2018-12-28 08:46 | PN ---
Progress Note (short form) - Note Progress Note: 83 y.o M was admitted with left leg pain, fever and chills and leukocytosis. hypertension, hyperlipidemia, CAD, CVA with right sided weakness, left carotid artery repair and an extensive surgical history 1995 left knee arthorscopyic 1997 Right shoulder rotator cuff repair 2000 Left Mastoidectomy 2006 laminectomy of lumbar spine 2007 left carotid artery repair 2008 stent 2009 left partial knee replacement 2008 cervical fusion c3-c7 2011 posterior cervical fusion [id number] 2011 insertion of right femoral harsha filter 2011 irrigation and debridement of spinal fusion 2011 bilteral latissimus muscle flap 2011 reconstruction of complex open back wound, incisional vac placement 2013 TPA for MCA stroke 2017 reversed shoulder replacement He was treated with IV Ceftriaxone/Vanco. Pain improved, Today awake, alert Vital Signs Temp 98.4 F 12/28/18 06:00 Pulse 78 12/28/18 06:00 Resp 18 12/28/18 06:00 BP 135/95 12/28/18 06:00 Pulse Ox 95 12/27/18 21:00 Intake & Output 12/27/18 12/27/18 12/28/18 11:59 23:59 11:59 Intake Total 250 850 250 Output Total 350 Balance 250 500 250 Intake: IVPB 250 350 250 Oral 500 Output: Urine 350 Void 350 Other: Voiding Method Urinal Toilet # Unmeasured Voids Void 1 Bowel Movement Yes No # Bowel Movements 1 Laboratory Results - last 24 hr 12/27/18 12/27/18 12/27/18 10:20 10:20 10:20 WBC 7.0 RBC 4.42 Hgb 14.3 Hct 41.6 MCV 94.1 MCH 32.3 MCHC 34.3 RDW 14.5 Plt Count 183 MPV 7.8 Absolute Neuts (auto) Neutrophils % Lymphocytes % Monocytes % Eosinophils % Basophils % Nucleated RBC % PT with INR 29.30 H INR 2.46 H Sodium 135 L Potassium 4.2 Chloride 102 Carbon Dioxide 28 Anion Gap 6 L BUN 13 Creatinine 1.0 Creat Clearance w eGFR > 60 Random Glucose 167 H Calcium 8.5 Magnesium 2.1 Total Bilirubin AST ALT Alkaline Phosphatase Total Protein Albumin 12/28/18 12/28/18 12/28/18 06:05 06:05 06:05 WBC 6.6 RBC 4.22 Hgb 13.7 Hct 39.4 MCV 93.4 MCH 32.5 MCHC 34.8 RDW 14.4 Plt Count 188 MPV 8.1 Absolute Neuts (auto) 4.2 Neutrophils % 63.5 D Lymphocytes % 23.7 D Monocytes % 8.9 Eosinophils % 3.2 D Basophils % 0.7 Nucleated RBC % 0 PT with INR 28.80 H INR 2.42 H Sodium 136 Potassium 4.0 Chloride 102 Carbon Dioxide 27 Anion Gap 7 L BUN 16 Creatinine 0.9 Creat Clearance w eGFR > 60 Random Glucose 116 H Calcium 8.3 L Magnesium Total Bilirubin 0.8 AST 16 ALT 17 Alkaline Phosphatase 97 Total Protein 6.2 L Albumin 2.9 L Current Active Problems Problem Status Onset Cellulitis AFIB Acute Lungs Clear Heart S1S2 irregular irregular Abdomen soft. NT LLE erythema RLE varicose veins, +1 edema Plan Continue IV ABX as per ID When stable will switch to PO ABX.
--- NOTE | 2018-12-28 10:12 | CONSULT ---
Consult Consult Specialty:: Podiatry Reason for Consultation:: Interdigital maceration b/l feet. Cellulitis right leg - History of Present Illness Chief Complaint: Maceration between toes/cellulitis right leg History of Present Illness: Recently developed moisture between toes with maceration. Recent cellulitis right leg - History Source History Provided By: Patient - Alcohol/Substance Use Hx Alcohol Use: No - Smoking History Smoking history: Never smoked Have you smoked in the past 12 months: No If you are a former smoker, when did you quit?: 10 YRS AGO Home Medications - Allergies Allergies/Adverse Reactions: Allergies Allergy/AdvReac Type Severity Reaction Status Date / Time Tetanus Toxoid,Fluid Allergy Severe Swelling Verified 12/26/18 01:12 [From Tetanus Toxoid Purogenated] - Home Medications Home Medications: Ambulatory Orders Pitavastatin Calcium [Livalo] 20 mg PO DAILY 12/10/11 Vitamin D 1,000 iu PO DAILY 12/10/11 Docusate Sodium [Stool Softener] 50 mg PO DAILY 04/11/17 Furosemide [Lasix] 20 mg PO PRN 04/11/17 Gabapentin 300 mg PO BID 04/11/17 Metoprolol Succinate [Toprol Xl -] 25 mg PO BID 04/11/17 Ranitidine HCl [Zantac] 150 mg PO DAILY 04/11/17 Warfarin Na [Coumadin] 2 mg PO DAILY 04/11/17 Physical Exam Vital Signs: Vital Signs Temperature 98.4 F 12/28/18 06:00 Pulse Rate 100 H 12/28/18 09:31 Respiratory Rate 18 12/28/18 09:31 Blood Pressure 134/94 12/28/18 09:31 O2 Sat by Pulse Oximetry (%) 95 12/27/18 21:00 Extremities: Yes: Other (+interdigital maceration between toes x 8, -cellulitis , +cream between toes, +eschar right velázquez, +mild erythema, no evidence of acute cellulitis today,) Labs: CBC, BMP 12/28/18 06:05 12/28/18 06:05 Assessment/Plan Tinea Pedis Interdigital maceration resolving cellulitis DC Nystatin. Change to bid betadinme swab between toes both feet daily. Abx as per ID. Continue dressing right leg. Will follow.
[2018-12-28] MEDS ORDERED: POVIDONE-IODINE 10% SOLN 118 ML BOTTLE TP ONE (10:20)
[2018-12-28] MEDS ORDERED: DEXTROSE 5%-WATER 100 ML IVPB ONE (11:04)
[2018-12-28] MEDS: RANITIDINE HCL 150 MG TABLET (FP) PO SCH ×2 (11:07→22:54)
[2018-12-28] MEDS: LACTOBACILLUS ACIDOPHILUS 1 TABLET PO SCH (11:07)
[2018-12-28] MEDS: metoPROLOL SUCCINATE 25 MG TAB.SR.24H (FP) PO SCH ×2 (11:07→22:57)
[2018-12-28] MEDS: CHOLECALCIFEROL (VITAMIN D3) 1,000 UNIT TABLET (FP) PO SCH (11:07)
[2018-12-28] MEDS: FUROSEMIDE 20 MG TABLET (FP) PO SCH (11:07)
[2018-12-28] MEDS: ASPIRIN COATED 81 MG TABLET.EC PO SCH (11:07)
[2018-12-28] MEDS: GABAPENTIN 300 MG CAPSULE (FP) PO SCH ×2 (11:07→22:54)
[2018-12-28] MEDS: DOCUSATE SODIUM 100 MG CAPSULE (FP) PO SCH ×2 (11:08→22:54)
[2018-12-28] MEDS: NYSTATIN 100000 UNIT/GM TOPICAL OINTMENT 15 GM TUBE TP SCH (11:08)
[2018-12-28] MEDS: CEFTRIAXONE 2 GM in DEXTROSE 5%-WATER 100 ML IVPB SCH (11:08)
[2018-12-28] MEDS: POLYETHYLENE GLYCOL 3350 119 GM BTL PO SCH (11:09)
[2018-12-28] MEDS ORDERED: PT OWN MED DRAWER 7, Y5N ONE (13:01)
--- NOTE | 2018-12-28 14:55 | PN ---
Progress Note, Physician History of Present Illness: OOB IN CHAIR NO C/O LEG PAIN NO F/C AFEBRILE WBC IMPROVED WNL BC NO GROWTH - Current Medication List Current Medications: Active Medications Acetaminophen (Tylenol -) 650 mg PO Q6H PRN PRN Reason: PAIN LEVEL 6-10 Aspirin (Ecotrin -) 81 mg PO DAILY [facility] Last Admin: 12/28/18 11:07 Dose: 81 mg Cholecalciferol (Vitamin D3 -) 1,000 unit PO DAILY [facility] Last Admin: 12/28/18 11:07 Dose: 1,000 unit Docusate Sodium (Colace -) 100 mg PO BID [facility] Last Admin: 12/28/18 11:08 Dose: 100 mg Furosemide (Lasix -) 20 mg PO DAILY [facility] Last Admin: 12/28/18 11:07 Dose: 20 mg Gabapentin (Neurontin -) 300 mg PO BID [facility] Last Admin: 12/28/18 11:07 Dose: 300 mg Ceftriaxone Sodium 2 gm/ (Dextrose) 100 mls @ 100 mls/hr IVPB DAILY [facility]; Protocol Last Admin: 12/28/18 11:08 Dose: 100 mls/hr Vancomycin HCl (Vancomycin (Pre-Docked)) 1,000 mg in 250 mls @ 166.667 mls/hr IVPB Q12H [facility]; Protocol Last Admin: 12/28/18 14:43 Dose: 166.667 mls/hr Lactobacillus Acidophilus (Bacid -) 1 tab PO DAILY [facility] Last Admin: 12/28/18 11:07 Dose: 1 tab Metoprolol Succinate (Toprol Xl -) 25 mg PO BID [facility] Last Admin: 12/28/18 11:07 Dose: 25 mg Polyethylene Glycol (Miralax (For Daily Use) -) 17 gm PO DAILY [facility] Last Admin: 12/28/18 11:09 Dose: 17 gm Ranitidine HCl (Zantac -) 150 mg PO BID [facility] Last Admin: 12/28/18 11:07 Dose: 150 mg Warfarin Sodium (Coumadin -) 2 mg PO DAILY@1800 [facility] Last Admin: 12/27/18 17:20 Dose: 2 mg - Objective Vital Signs: Vital Signs Temperature 98.4 F 12/28/18 06:00 Pulse Rate 100 H 12/28/18 09:31 Respiratory Rate 18 12/28/18 09:31 Blood Pressure 134/94 12/28/18 09:31 O2 Sat by Pulse Oximetry (%) 95 12/28/18 09:00 Constitutional: Yes: No Distress Cardiovascular: Yes: Regular Rate and Rhythm, S1, S2 Respiratory: Yes: CTA Bilaterally Gastrointestinal: Yes: Normal Bowel Sounds, Soft Extremities: Yes: Other (ERYTHEMA L LE IMPROVED DRY ULCER/ STASIS DERMATITIS R LE) Labs: CBC, BMP 12/28/18 06:05 12/28/18 06:05 INR, PTT INR 2.42 (0.83-1.09) H 12/28/18 06:05 Assessment/Plan LE CELLULITIS IMPROVED TINEA PEDIS FEVER/ CHILLS RESOLVED LEUKOCYTOSIS RESOLVED CONTINUE CEFTRIAXONE/ VANCOMYCIN
--- NOTE | 2018-12-28 17:23 | CONSULT ---
Consult - text type - Consultation Consultation Note: 83 year old man known to me with multiple vascular problems in the past. He has recently been treated for an ulcer of the right calf which took nearly a year to close. He has chronic edema nad is now keeping swelling under control with elevation and stockings. He was admitted with redness and pain in the left calf. He had chills and fever at home. Today he is afebrile. There is 1+ edema of both calves and a small eschar on the anterior aspect of the right calf. The posterior calf wound is healed. The left calf has slight redness. No open wounds. Both feet warm. Arterial and venous Duplex scans were unremarkable. Imp: No open wounds. Chronic edema, stasis dermatitis. Rec: Leg elevation Bacitracin to right calf eschar.
[2018-12-28] MEDS: WARFARIN NA 2 MG TABLET (UD) PO SCH (18:19)
[2018-12-29] MEDS: VANCOMYCIN 1 GRAM (PRE-DOCKED) 1,000 MG/250 ML BAG IVPB SCH ×2 (01:41→14:33)
[2018-12-29 07:44] LABS: BASO % 0.5 % (0-2.0); EOS % 3.3 % (0-4.5); HEMATOCRIT 39.7 % (35.4-49); HEMOGLOBIN 13.8 GM/dL (11.7-16.9); LYMPH % 25.3 % (8-40); MCH 32.7 pg (25.7-33.7); MCHC 34.7 g/dl (32.0-35.9); MEAN CELL VOLUME 94.2 fl (80-96); MEAN PLT VOLUME 8.1 fl (7.5-11.1); MONO % 9.4 % (3.8-10.2); NEUT % 61.5 % (42.8-82.8); PLATELET COUNT 179 K/MM3 (134-434); RBC 4.21 M/mm3 (4.00-5.60); RDW 13.8 % (11.9-15.9); WHITE BLOOD COUNT 5.7 K/mm3 (4.0-10.0)
[2018-12-29 08:21] LABS: ALBUMIN 2.9 g/dl (3.4-5.0); ALK PHOS 103 U/L (45-117); ANION GAP 9 MMOL/L (8-16); BLOOD UREA NITROGEN 15 mg/dL (7-18); CALCIUM 8.3 mg/dL (8.5-10.1); CHLORIDE 101 mmol/L (98-107); CO2 27 mmol/L (21-32); GLUCOSE,RANDOM 103 mg/dL (74-106); POTASSIUM 3.8 mmol/L (3.5-5.1); SGOT/AST 17 U/L (15-37); SGPT/ALT 15 U/L (13-61); SODIUM 138 mmol/L (136-145); TOT PROT 6.2 g/dl (6.4-8.2)
[2018-12-29] MEDS ORDERED: DEXTROSE 5%-WATER 100 ML IVPB ONE (10:45)
[2018-12-29] MEDS: CEFTRIAXONE 2 GM in DEXTROSE 5%-WATER 100 ML IVPB SCH (10:51)
[2018-12-29] MEDS: DOCUSATE SODIUM 100 MG CAPSULE (FP) PO SCH ×2 (10:54→21:13)
[2018-12-29] MEDS: metoPROLOL SUCCINATE 25 MG TAB.SR.24H (FP) PO SCH ×2 (10:54→21:14)
[2018-12-29] MEDS: LACTOBACILLUS ACIDOPHILUS 1 TABLET PO SCH (10:54)
[2018-12-29] MEDS: FUROSEMIDE 20 MG TABLET (FP) PO SCH (10:54)
[2018-12-29] MEDS: RANITIDINE HCL 150 MG TABLET (FP) PO SCH ×2 (10:54→21:14)
[2018-12-29] MEDS: GABAPENTIN 300 MG CAPSULE (FP) PO SCH ×2 (10:54→21:14)
[2018-12-29] MEDS: ASPIRIN COATED 81 MG TABLET.EC PO SCH (10:55)
[2018-12-29] MEDS: CHOLECALCIFEROL (VITAMIN D3) 1,000 UNIT TABLET (FP) PO SCH (10:55)
[2018-12-29] MEDS: POLYETHYLENE GLYCOL 3350 119 GM BTL PO SCH (10:55)
--- NOTE | 2018-12-29 12:47 | PN ---
Progress Note (short form) - Note Progress Note: Feels better, afebrile. Spoke to Dr Orr who recommended to continue IV abx. Bld Cx neg Vital Signs Period Temp Pulse Resp BP Sys/Velazquez Pulse Ox Last 24 Hr 97.2 F-97.4 F 78-86 18-20 113-160/40-56 96 Awake, alert, NAD Neck-no JVD Lungs are Clear Heart S1S2 irregular Abdomen obese , NT/ND LE improving redness. Back-healed long LS scar post Sx Left knee scar post TKR Laboratory Results - last 24 hr 12/29/18 12/29/18 06:35 06:35 WBC 5.7 RBC 4.21 Hgb 13.8 Hct 39.7 MCV 94.2 MCH 32.7 MCHC 34.7 RDW 13.8 Plt Count 179 MPV 8.1 Absolute Neuts (auto) 3.5 Neutrophils % 61.5 Lymphocytes % 25.3 Monocytes % 9.4 Eosinophils % 3.3 Basophils % 0.5 Nucleated RBC % 0 Sodium 138 Potassium 3.8 Chloride 101 Carbon Dioxide 27 Anion Gap 9 BUN 15 Creatinine 1.0 Creat Clearance w eGFR > 60 Random Glucose 103 Calcium 8.3 L Total Bilirubin 1.0 AST 17 ALT 15 Alkaline Phosphatase 103 Total Protein 6.2 L Albumin 2.9 L Current Active Problems Problem Status Onset Cellulitis AFIB TKR Laminectomy. Acute Plan Continue IV ABX for the next 24 hrs. INR in AM
[2018-12-29 14:16] LABS: INR 2.18 (0.83-1.09); PROTHROMBIN TIME (PATIENT) 25.9 SEC (9.7-13.0)
[2018-12-29] MEDS: WARFARIN NA 2 MG TABLET (UD) PO SCH (17:51)
[2018-12-30] MEDS: VANCOMYCIN 1 GRAM (PRE-DOCKED) 1,000 MG/250 ML BAG IVPB SCH (02:04)
--- NOTE | 2018-12-30 08:37 | PN ---
Progress Note (short form) - Note Progress Note: No complaints, doing well. LLE -no redness, no edema, chronic stasis changes. Vital Signs Temp 97.5 F L 12/30/18 03:00 Pulse 73 12/30/18 03:00 Resp 20 12/30/18 03:00 BP 150/51 L 12/30/18 03:00 Pulse Ox 96 12/29/18 21:00 Intake & Output 12/29/18 12/29/18 12/30/18 11:59 23:59 11:59 Intake Total 250 1200 300 Output Total 250 250 Balance 0 950 300 Intake: IVPB 250 600 0 Oral 600 300 Output: Urine 250 250 Void 250 250 Other: Voiding Method Toilet Urinal # Unmeasured Voids Void 3 Bowel Movement No No Lungs are Clear Neck supple no JVD Heart S1S2 irregular Abdomen soft NT Residual left rebel Back healed LS laminectomy TKR Laboratory Results - last 24 hr 12/29/18 13:20 PT with INR 25.90 H INR 2.18 H Current Active Problems Problem Status Onset Cellulitis AFIB CVA Plan Acute Plan D/C home F/u in the office next week.
--- NOTE | 2018-12-30 08:39 | DS ---
Physical Examination Vital Signs: Vital Signs Temperature 97.5 F L 12/30/18 03:00 Pulse Rate 73 12/30/18 03:00 Respiratory Rate 20 12/30/18 03:00 Blood Pressure 150/51 L 12/30/18 03:00 O2 Sat by Pulse Oximetry (%) 96 12/29/18 21:00 Constitutional: Yes: No Distress, Calm Eyes: Yes: Conjunctiva Clear, EOM Intact, Ptosis HENT: Yes: Atraumatic Neck: Yes: Supple, Trachea Midline Cardiovascular: Yes: Pulse Irregular, Murmur, S1, S2. No: Tachycardia, JVD Respiratory: Yes: Regular, CTA Bilaterally Gastrointestinal: Yes: Normal Bowel Sounds, Soft, Abdomen, Obese. No: Ascites, Distention ...Rectal Exam: Yes: Deferred Renal/: No: Anuria, Bladder Distention Breast(s): Yes: WNL Musculoskeletal: No: Joint Swelling Extremities: No: Amputation, Calf Tenderness, Cold, Cyanosis, Erythema, Internal Rotation, Pallor, Shortened Edema: RLE: Trace Peripheral Pulses WNL: No Integumentary: Yes: WNL Neurological: Yes: Alert, Oriented, Confusion, Pre-Existing Deficit, Unsteady Gait, Weakness. No: Aphasia, Asterixis, Dysarthria, Paresthesia, Seizure, Unresponsive Psychiatric: Yes: Alert, Oriented. No: Agitated, Suicidal Ideation Labs: CBC, BMP 12/29/18 06:35 12/29/18 06:35 Discharge Summary Reason For Visit: CELLULITIS LLE, AFIB Current Active Problems Cellulitis (Acute) Condition: Stable - Instructions Disposition: HOME - Home Medications Comprehensive Discharge Medication List: Ambulatory Orders Pitavastatin Calcium [Livalo] 20 mg PO DAILY 12/10/11 Vitamin D 1,000 iu PO DAILY 12/10/11 Docusate Sodium [Stool Softener] 50 mg PO DAILY 04/11/17 Furosemide [Lasix] 20 mg PO PRN 04/11/17 Gabapentin 300 mg PO BID 04/11/17 Metoprolol Succinate [Toprol Xl -] 25 mg PO BID 04/11/17 Ranitidine HCl [Zantac] 150 mg PO DAILY 04/11/17 Warfarin Na [Coumadin] 2 mg PO DAILY 04/11/17
[2018-12-30] MEDS ORDERED: DEXTROSE 5%-WATER 100 ML IVPB ONE (09:25)
[2018-12-30] MEDS: CHOLECALCIFEROL (VITAMIN D3) 1,000 UNIT TABLET (FP) PO SCH (09:27)
[2018-12-30] MEDS: RANITIDINE HCL 150 MG TABLET (FP) PO SCH (09:27)
[2018-12-30] MEDS: metoPROLOL SUCCINATE 25 MG TAB.SR.24H (FP) PO SCH (09:27)
[2018-12-30] MEDS: CEFTRIAXONE 2 GM in DEXTROSE 5%-WATER 100 ML IVPB SCH (09:27)
[2018-12-30] MEDS: LACTOBACILLUS ACIDOPHILUS 1 TABLET PO SCH (09:27)
[2018-12-30] MEDS: ASPIRIN COATED 81 MG TABLET.EC PO SCH (09:27)
[2018-12-30] MEDS: DOCUSATE SODIUM 100 MG CAPSULE (FP) PO SCH (09:27)
[2018-12-30] MEDS: FUROSEMIDE 20 MG TABLET (FP) PO SCH (09:27)
[2018-12-30] MEDS: GABAPENTIN 300 MG CAPSULE (FP) PO SCH (09:32)
[2018-12-30] MEDS: POLYETHYLENE GLYCOL 3350 119 GM BTL PO SCH (09:33)
[2018-12-30 09:37] VITALS: BP 161/78; PULSE 97
[2018-12-30 10:44] VITALS: TEMP 97.1
--- NOTE | 2018-12-30 14:32 | PN ---
Progress Note (short form) - Note Progress Note: FUV b/l feet tinea pedis. Seen at 8:30am. +improved IDM b/l feet according to patient Resolving Tinea Pedis Continue Betadine dressing changes.
== END 2018-12-30 10:55 | disposition home or self-care (01) | DRG 603 ==
LOC: JER 01:09 → JERBED 04:12 → J5S 08:53
PROVIDERS: ADMIT Internal Medicine; ATTEND Internal Medicine
DX: L03.116 Cellulitis of left lower limb (principal); I69.351 Hemiplegia and hemiparesis following cerebral infarction affecting right dominant side; L97.819 Non-pressure chronic ulcer of other part of right lower leg with unspecified severity; I25.10 Atherosclerotic heart disease of native coronary artery without angina pectoris; E78.5 Hyperlipidemia, unspecified; I10 Essential (primary) hypertension; B35.3 Tinea pedis; I48.91 Unspecified atrial fibrillation; Z79.01 Long term (current) use of anticoagulants; E66.9 Obesity, unspecified; Z68.32 Body mass index [BMI] 32.0-32.9, adult
CPT/HCPCS: 36415; 71045-TC-FY; 73610-TC-LT-FY; 73630-TC-LT; 80048; 80053; 82803; 83036; 83605; 83735; 84484; 85025; 85027; 85610; 85651; 85730; 86140; 87040; 87086; 90688; 93005; 93010; 93926-TC; 93971-TC; 97116-GP; 97161-GP; 99283-25